=== PATIENT | male | born 1995 | race Caucasian/White ===

== ENCOUNTER 2022-11-01 17:43 | Emergency (ER) | payer OTHER, SELFPAY ==
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
[2022-11-01 18:04] VITALS: BP 155/101; PULSE 81; RESP 14; TEMP 37.2; O2SAT 100
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
== END 2022-11-01 21:55 | disposition home or self-care (01) ==
LOC: ANHED 22:55
PROVIDERS: Emergency Provider Preventive Medicine Aerospace Medicine
DX: S60.512A Abrasion of left hand, initial encounter (principal); S80.812A Abrasion, left lower leg, initial encounter; S90.512A Abrasion, left ankle, initial encounter; S40.211A Abrasion of right shoulder, initial encounter; S50.311A Abrasion of right elbow, initial encounter; S90.02XA Contusion of left ankle, initial encounter; Z23 Encounter for immunization; Z87.891 Personal history of nicotine dependence; V28.49XA Other motorcycle driver injured in noncollision transport accident in traffic accident, initial encounter
CPT/HCPCS: 73130; 73590; 73630; 90471; 90714; 99284; A9270

== ENCOUNTER 2024-10-31 05:19 | Emergency (ER) | payer OTHER, SELFPAY ==
--- OUTSIDE RECORDS SUMMARY | 2024-10-31 05:21 | XMS_ITS | Clinical Summary ---
Author Organization [facility] Address [address] [place] [address] Care Team Providers Care Vocational Placement Specialist Name Role Phone Unavailable Primary Care Provider Unavailabl e Source Comments [facility],non-owned Affiliates and Associated Physician Practices is amultiple site organization consisting of ambulatory clinics and hospital sitesin [place], [place], [place] and [place]. This disclosure is being madepursuant to the Care Everywhere program and may not contain all information available regarding this patient. Last updated 17.[facility] Allergies No known active allergies Medications * Be aware that medications may not be up to date on this document. Alwaysverify current medications with the patient. No known medications Social History Tobacco Use Types Packs/Day Years Used Date Smoking Tobacco: Never Smokeless Tobacco: Never Sex and Gender Information Value Date Recorded Sex Assigned at Not on file Legal Sex Male 11:44 AM CDT Gender Identity Not on file Sexual Orientation Not on file Last Filed Vital Signs Vital Sign Reading Time Taken Comments Blood Pressure 118/78 01/24/2020 4:07 PM CDT Pulse 108 01/24/2020 4:07 PM CDT Temperature 37.3 C (99.1 F) 01/24/2020 4:07 PM CDT Respiratory Rate 16 01/24/2020 4:07 PM CDT Oxygen Saturation 97% 01/24/2020 4:07 PM CDT Inhaled Oxygen Concentration - - Weight 74.8 kg (165 lb) 01/24/2020 4:07 PM CDT Height 177.8 cm (5' 10) 01/24/2020 4:07 PM CDT Body Mass Index 23.68 01/24/2020 4:07 PM CDT Plan of Treatment Health Maintenance Due Date Last Done Comments HIV SCREENING 2012 HPV VACCINE (1 - Male 3-dose series) 2012 HEPATITIS C SCREENING 11/18/2015 DTAP/TDAP/TD VACCINES (1 - Tdap) 2016 HEPATITIS B VACCINE (1 of 3 - 19+ 3-dose series) 2016 COVID-19 VACCINE (1 - 2023-2 5 season) 2023 DEPRESSION SCREENING 04/05/2024 INFLUENZA VACCINE (#1) 2024 ZOSTER VACCINE (1 of 2) 11/23/2047 HIB VACCINE Aged Out No longer eligi ble based on patient's age to complete this topic MENINGOCOCCAL (Group B) VACC INE SHARED DECISION-MAKING Aged Out No longer eligibl e based on patient's age to complete this topic MENINGOCOCCAL GROUPS A/C/Y/W VACCINE Aged Out No longer eligible b ased on patient's age to complete this topic PNEUMOCOCCAL VACCINE Aged Out No long er eligible based on patient's age to complete this topic Insurance [employer]
--- OUTSIDE RECORDS SUMMARY | 2024-10-31 05:21 | XMS_ITS | Data Portability ---
[facility] Address [address] [place] [address] Care Team Providers Care Customs Inspector Name Role Phone VIJAYA ADAMS Primary Care Provider Assessment No assessment recorded. Plan of Treatment Reminders Order Date Submit Date Provider Last Modified By Organization Details Last Modified Time Details Appointments None recorded. Lab None recorded. Referral dermatolog ist referral 2023 024 dayna Jackson MD, [address] [place] [address], [address], 4 09:25:46 Procedures None recorded. Surgeries None recorded. Imaging None recorded. Medication Orders silver sulfadiazi ne 1 % topical cream 2022 023 [id number], [address], [place], [id number], 3 14:35:26 sulfametho xazole 800 mg-trimeth oprim 160 mg tablet 2022 023 [facility] #[id number], [address], [place], [id number], 3 14:35:28 Augmentin 875 mg-125 mg tablet [address] [id number], [address] [place], [place], [id number], 3 14:08:54 fluticason e propionate 50 mcg/actuat ion nasal spray,susp ension 2015 016 [facility] #[id number], [address] , [place], [place], [id number], 3 14:08:58 Patient TargetsNo targets recorded. Patient Instructions Encounter Date Encounter Id Patient Instructions Last Modified By Organization Details Last Modified Time 09/13/2015 [id number] Acute Sinusitis in Teens: Care Instructions [email or web address] Not available 09/13/2015 12:28:19 12/09/2023 [id number] A healthy lifestyle: care instructions [email or web address] Not available 12/09/2023 14:52:40 Reason for Referral Child Psychologist Referral for H and wart Referring Physician: Vijaya Adams, Family Medicine, Encounter Date: 12/09/2023 Problems Name Problem SNOMED Code Status Onset Date Resolution Date Notes Provider Name and Address Organization Details Recorded Time Acute sinusitis [id number] Active Yeyo Salcido MD Attn: Accounting,[address] [facility], [place], [address], [facility] 6 12:17:25 Problem Notes None recorded. Medical Equipment None Reported. Allergies No known drug allergies Medications Name Sig Start Date Stop Date Status Note LastModified by Organization Details LastModified Time sulfamethox azole 800 mg-trimetho prim 160 mg tablet TAKE 1 TABLET BY MOUTH EVERY 12 HOURS FOR 10 DAYS 12/01 completed Not Available Not Available Not Available oxycodone-a cetaminophe n 5 mg-325 mg tablet TAKE 1 TABLET BY MOUTH EVERY 12 HOURS NEEDED FOR SEVERE PAIN 11/17 completed Not Available Not Available Not Available SSD 1 % topical cream APPLY 1/16 INCH THICK LAYER TO ENTIRE BURN AREA TOPICALY TWICE DAILY 12/01 completed Not Available Not Available Not Available fluticasone propionate 50 mcg/actuati on nasal spray,suspe nsion Inhale 1 spray every day by intranasa l route. 11/17 completed Not Available Not Available Not Available amoxicillin 875 mg-potassiu m clavulanate 125 mg tablet Take 1 tablet every 12 hours by oral route for 10 days. 11/17 completed Not Available Not Available Not Available Vitals Date Recorded Respiratory rate Heart rate Body height Body mass index (BMI) Body weight Body temperature Systolic And Diastolic Provider Name and Address Organization Details Last Updated DateTime 6 16 /min 72 /min 176.53 cm 22.8 kg/m2 45634.5 46586 g 97.6 [degF] 114/68 mm[Hg] Lady Kelly MA [facility] 6 12:10:30 Date Recorded Body weight Body mass index (BMI) Body height Oxygen saturation Oxygen saturation in Arterial blood by Pulse oximetry Heart rate Systolic And Diastolic Provider Name and Address Organization Details Last Updated DateTime 3 28873.9 6 g 26.4 kg/m2 180.34 cm 99 % 99 % 81 /min 148/89 mm[Hg] Josefina Pratt MA [facility] 3 14:09:24 Date Recorded Body height Body mass index (BMI) Body weight Respiratory rate Heart rate Oxygen saturation Oxygen saturation in Arterial blood by Pulse oximetry Systolic And Diastolic Provider Name and Address Organization Details Last Updated DateTime 3 180.34 cm 26.3 kg/m2 70330.4 7 g 16 /min 101 /min 98 % 98 % 133/84 mm[Hg] Lily Morales MA [facility] 3 14:37:40 Date Recorded Body weight Body mass index (BMI) Body height Oxygen saturation Oxygen saturation in Arterial blood by Pulse oximetry Heart rate Systolic And Diastolic Provider Name and Address Organization Details Last Updated DateTime 4 62184.4 2 g 28.9 kg/m2 180.34 cm 99 % 99 % 91 /min 137/89 mm[Hg] Lily Morales MA [facility] 4 14:34:04 Date Recorded Body temperature Provider Name a wy Address Organization Details Last Updated DateTime 01/13/2016 98.8 [degF] Marie Alonzo MA [facility] 016 09:12:18 Social History Question Answer Notes LastModified by Organizat ion Details LastModified Time Tobacco Smoking Status Never Smoker Ginger Cohn MA null, [facility] 09/13/2015 12:04:57 Animal Exposure? Yes Dog Informat ion not available 09/13/2015 Do You Wear A Helmet When Biking? No Information not available 09/13/2015 What Is Your Level Of Caffeine Consumption? Moderate Information not available 09/13/2015 What Type Of Boom Crane Operator Do You Use? None Information not available 09/13/2015 What Type Of Diet Are You Following? REGULAR Snacks A Lot Information not available 09/13/2015 Have There Been Any Changes To Your Family Or Social Situation? No Information not available 09/13/2015 Are There Any Guns Present In Your Home? No Information not available 09/13/2015 What Is Your Home Situation? Both Parents Information not available 09/13/2015 Do You Use Insect Repellent Routinely? Yes Information not available 09/13/2015 Car Seat Type Or Seat Belt? Seat Belt Information not available 09/13/2015 Parent Involvement? Both Parents Involved Information not available 09/13/2015 Riding In Car Front Seat? Yes Information not available 09/13/2015 What Was The Date Of Your Most Recent Tobacco Screening? 12/09/2023 [email or web address] Information not available 12/09/2023 Pool Exposure No Information not available 09/13/2015 What Is Your Relationship Status? Single Information not available 11/17/2022 What Is The Name Of Your School? [employer] Information not available 09/13/2015 Do You Have Any Siblings? 1 Brother Information not available 09/13/2015 Do You Have Smoke And Carbon Monoxide Detectors In Your Home? Yes Information not available 09/13/2015 Are You Passively Exposed To Smoke? No Information not available 09/13/2015 What Types Of Sporting Activities Do You Participate In? Soccer Information not available 09/13/2015 Do You Use Sunscreen Routinely? Yes Information not available 09/13/2015 Has Tobacco Cessation Counseling Been Provided? No Information not available 11/17/2022 Year In School 12 Informatio n not available 09/13/2015 Sex: Unknown Functional Status Question Answer Note LastModified by Organizat ion Details LastModified Time Do you use any illicit or recreational drugs? No Information not available 11/17/2022 Do you or have you ever used any other forms of tobacco or nicotine? Yes Information not available 11/17/2022 What is your level of alcohol consumption? Occasional Information not available 11/17/2022 Are you currently employed? 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 Former user of electronic cigarettes Information not available 11/17/2022 Mental Status Question Answer Note LastModified by Organization D etails LastModified Time Do you feel stressed (tense, restless, nervous, or anxious, or unable to sleep at night)? [id number] Information not available 11/17/2022 Are you or have you been involved with bullying? No Information not available 09/13/2015 Family History Relationship Description Onset Age of this Age Resolved Age Notes LastModified by Organization Details LastModified Time Maternal Grandmother Hypertensive disorder sattebery Not available 2015 12:05:04 Maternal Grandfather Non-Hodgkin' s lymphoma (clinical) sattebery Not available 09/12 12:05:04 Medical History Condition Response Blood Diseases N Ear or Hearing Problems N Thyroid Problems N Depression N Developmental or Behavioral Disorders N Skin Problems N Premature N Anemia N Constipation N Anxiety Disorder N Diabetes N Muscle, Joint, or Bone Problems N Bedwetting N Vision or Eye Problems N Seizures/Epilepsy N Heart Problems/Murmur N Head Injury/Concussion N Cancer N Asthma N Allergies N ADHD N Bladder or Kidney Problems N Headaches N Chicken Pox N Autism Spectrum Disorder (ASD) N Immunizations Vaccine Type Date Status Note Provider Nam e and Address Organization Details Recorded Time Meningococcal MCV4O 6 completed Not Available [facility] 04/22/2019 02:46:08 Hep B, adolescent or pediatric 8 completed Lady Kelly MA null, [place] - [facility] 09/13/2015 12:24:40 Hib, unspecified formulation 9 completed JARRETT Sanchez, [place] [facility] 09/13/2015 12:24:40 DTaP 9 completed JARRETT [place] [facility] 09/13/2015 12:24:40 OPV, trivalent 8 completed JAR[place] [facility] 09/13/2015 12:24:40 varicella 9 completed JAR[place] [facility] 09/13/2015 12:24:40 DTaP 8 completed JAR[place] [facility] 09/13/2015 12:24:40 OPV, trivalent 8 completed JARRETT [place] [facility] 09/13/2015 12:24:40 DTaP 8 [place]AR[place] [facility] 09/13/2015 12:24:40 varicella 0 completed JARRETT [place] [facility] 09/13/2015 12:24:40 pneumococcal conjugate PCV 7 0 [place] JARRETT [place] [facility] 09/13/2015 12:24:40 MMR 9 completed [place]AR[place] [facility] 09/13/2015 12:24:40 Hib, unspecified formulation 8 completed JAR[place] [facility] 09/13/2015 12:24:40 DTaP 9 completed JAR[place] [facility] 09/13/2015 12:24:40 Hep A, ped/adol, 2 dose 6 completed [place] [facility] 09/13/2015 12:24:40 Hep B, adolescent or pediatric 9 completed [place]AR[place] [facility] 09/13/2015 12:24:40 MMR 3 completed JAR[place] [facility] 09/13/2015 12:24:40 meningococcal MCV4, unspecified formulation 0 completed JAR[place] [facility] 09/13/2015 12:24:40 IPV 3 completed JARRETT Sanchez, [place] - [facility] 09/13/2015 12:24:40 Hib, unspecified formulation 9 completed JAR[place]TT [place] [facility] 09/13/2015 12:24:40 DTaP 3 completed JARRETT Sanchez, [place] [facility] 09/13/2015 12:24:40 OPV, trivalent 9 completed JARRETT [place], [place] [facility] 09/13/2015 12:24:40 Hep A, ped/adol, 2 dose 0 completed JARRETT [place], [place] [facility] 09/13/2015 12:24:40 Hib-Hep B 8 completed JARRETT [place], [place] [facility] 09/13/2015 12:24:40 Tdap 0 completed Lady Kelly MA [place], [place] - [facility] 09/13/2015 12:32:10 Past Encounters Encounter ID Performer Location Encounter Start Date Encounter Closed Date Diagnosis/Indication Diagnosis SNOMED-CT Code Diagnosis ICD10 Code Diagnosis Note [id number] MD Soha Barrios (Peds) [address] [place] [address] 09/13/2015 11:41:13 09/13/2015 14:17:50 Acute sinusitis 25870183 J01.10 humidifier , rest, etc [id number] MD Soha Lujan (Peds) [address] [place] [address] 01/13/2016 08:48:26 01/13/2016 16:52:49 Active or passive immunization 542492995 Z23 [id number] Shay Fleming MD [facility] [address] [place] [address] 11/17/2022 13:46:30 11/18/2022 11:55:38 Abrasion of skin of lower leg 264036355 S80.812A [id number] Shay Fleming MD [facility] [address] [place] [address] 12/01/2022 14:30:53 12/02/2022 08:54:59 Abrasion of skin of lower leg 049428919 S80.812D [id number] Vijaya dAams PA-C [facility] [address] [place] [address] [address] 12/09/2023 14:24:31 12/10/2023 07:35:12 Hand wart 570449659 B07.8 Overweight 257188586 E66 .3 Health Concerns Section Related Observation LastModified by Organization Detai ls LastModified Time None Recorded Concern Status LastModified by Organization Details LastModified Time None Recorded Advance Directives Directive None Recorded Payers Insurance Date Sequence Insurance Name Policy Number Policy William Covered Member ID William Member ID Guarantor Name 11/13/2022 1 [facility] [id number] Lisa Hanks [id number] Lisa Hanks 12/09/2023 1 [facility] [id number] Larry Hanks [id number] Lisa Hanks 11/17/2022 1 *SELF PAY* Clinton Hanks
[2024-10-31 05:24] VITALS: BP 146/90; PULSE 64; RESP 18; TEMP 36.3; O2SAT 99
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
[2024-10-31] MEDS: SILVER SULFADIAZINE 1% CR 50 GM JAR (*BKC) 1 APPLIC TOPICAL (05:45)
[2024-10-31 05:56] VITALS: BP 155/93; PULSE 64; RESP 16; TEMP 36.3; O2SAT 99
== END 2024-10-31 05:57 | disposition home or self-care (01) ==
PROVIDERS: Emergency Provider Emergency Medicine
DX: S40.812A Abrasion of left upper arm, initial encounter (principal); S80.212A Abrasion, left knee, initial encounter; V29.99XA Rider (driver) (passenger) of other motorcycle injured in unspecified traffic accident, initial encounter
CPT/HCPCS: 99283; A9270